=== PATIENT | male | born 1950 | race African-American/Black ===

== ENCOUNTER 2019-12-12 14:39 | Inpatient (IN) | payer MEDICARE ==
[~2019-12-12] VITALS: Ht 180.3 cm; Wt 89.1 kg
[2019-12-12] MEDS ORDERED: FAMOTIDINE 20MG/2ML VIAL IV STA (15:16)
[2019-12-12] MEDS ORDERED: SODIUM CHLORIDE 0.9% 500 ML IV ONE ×2 (15:17→17:03)
[2019-12-12] MEDS ORDERED: LORAZEPAM 2MG/ML CPJ IV ONE ×2 (15:30→17:15)
[2019-12-12 16:10] LABS: HEMATOCRIT. 45.4 % (42.0-52.0); HEMOGLOBIN. 15.3 g/dL (14.0-18.0); MEAN CORPUSCULAR HEMOGLOBIN 33.1 pg (28.0-32.0); MEAN CORPUSCULAR VOLUME 97.9 fL (80.0-94.0); MEAN PLATELET VOLUME 7.6 fl (7.4-10.4); PLATELET 109 x1000/uL (130-400); RED BLOOD CELL COUNT 4.64 mill/uL (4.7-6.1)
[2019-12-12 16:12] LABS: CHLORIDE 97 mEq/L (98-107)
[2019-12-12 16:14] LABS: PROTHROMBIN TIME 11.2 sec (9.6-11.0)
[2019-12-12 16:17] LABS: ETHANOL BLOOD 21 mg/dL
[2019-12-12 16:21] LABS: CREATINE KINASE 105 IU/L (39-308)
[2019-12-12 16:26] LABS: CREATINE KINASE MB FRACTION 5.1 ng/mL (0.5-3.6)
[2019-12-12] MEDS ORDERED: PIPERACILLIN/TAZ 3.375G PREMIX 50 ML IV ONE (17:00)
[2019-12-12 17:03] LABS: PLATELET ESTIMATE DECREASED
[2019-12-12 17:04] LABS: AMYLASE 128 IU/L (25-115)
[2019-12-12] MEDS ORDERED: CHLORDIAZEPOXIDE 25MG CAPSULE PO ONE (17:15)
[2019-12-12] MEDS ORDERED: SODIUM BICARBONATE 8.4% 1 MEQ/ML 50ML SYR IV ONE (17:15)
[2019-12-12 17:28] LABS: BG BASE EXCESS -11.5 mmol/L (-2.0-2.0); BG CARBOXYHEMOGLOBIN 1.9 % (0.5-1.5); BG DEOXYHEMOGLOBIN 8.8 % (0.0-5.0); BG HCO3 ACT 11.9 mmol/L (22.0-26.0); BG METHEMOGLOBIN 0.4 % (0.0-1.5); BG OXYHEMOGLOBIN 88.9 % (94.0-97.0); BG PCO2 22.5 mmHg (35.0-45.0); BG PH 7.343 (7.350-7.450); BG PO2 62.1 mmHg (75.0-100.0); BG SAMPLE SITE RIGHT RADIAL; BG TOTAL HEMOGLOBIN 14.8 g/dL (12.0-18.0); BG VENT MODE ROOM AIR
[2019-12-12] MEDS ORDERED: IPRATROPIUM/ALBUTEROL 0.5-3(2.5)MG/3ML NEB NEB PRN (20:30)
[2019-12-12] MEDS ORDERED: LORAZEPAM 2MG/ML CPJ IV PRN (20:30)
[2019-12-12] MEDS ORDERED: CLONIDINE 0.1MG TABLET PO PRN (20:30)
[2019-12-12] MEDS ORDERED: ACETAMINOPHEN 325MG TABLET PO PRN (20:30)
[2019-12-12] MEDS ORDERED: ONDANSETRON HCL 4MG/2ML INJ IV PRN (20:30)
[2019-12-12] MEDS ORDERED: HYDROCODONE/ACETAMINOPHEN 5/325MG TABLET PO PRN (20:30)
[2019-12-12 21:00] VITALS: BP 136/77
[2019-12-12 22:00] VITALS: BP 133/77
[2019-12-12] MEDS: MULTIVITAMINS,THER W-MINERALS TABLET PO SCH (22:09)
[2019-12-12] MEDS: SODIUM CHLORIDE 0.9% 1,000 ML IV SCH (22:09)
[2019-12-12] MEDS: THIAMINE HCL 100MG TABLET PO SCH (22:09)
[2019-12-12] MEDS: CHLORDIAZEPOXIDE 25MG CAPSULE PO SCH (22:10)
[2019-12-12 22:27] LABS: HEPATITIS B SURFACE ANTIGEN NEGATIVE
[2019-12-12 22:57] LABS: HEPATITIS A AB IGM NEGATIVE (NEGATIVE)
[2019-12-13] VITALS (12 sets, daily range): BP systolic 128–160; BP diastolic 77–93
[2019-12-13 00:52] LABS: CHLORIDE 101 mEq/L (98-107)
[2019-12-13] MEDS ORDERED: DEXTROSE 50% WATER 50ML SYRINGE IV PRN (01:00)
[2019-12-13 01:01] LABS: CREATINE KINASE 66 IU/L (39-308)
[2019-12-13] MEDS: CHLORDIAZEPOXIDE 25MG CAPSULE PO SCH ×3 (05:27→21:51)
[2019-12-13 06:36] LABS: BASOPHILS % 0.2 % (0.0-2.0); HEMATOCRIT. 37.8 % (42.0-52.0); HEMOGLOBIN. 12.7 g/dL (14.0-18.0); LYMPHOCYTES % 10.4 % (20.0-50.0); MEAN CORPUSCULAR HEMOGLOBIN 32.7 pg (28.0-32.0); MEAN CORPUSCULAR VOLUME 96.9 fL (80.0-94.0); MEAN PLATELET VOLUME 7.9 fl (7.4-10.4); MONOCYTES % 9.4 % (2.0-8.0); PLATELET 97 x1000/uL (130-400)
[2019-12-13 08:00] LABS: CHLORIDE 101 mEq/L (98-107)
[2019-12-13] MEDS: INSULIN LISPRO 100 UNITS/ML SUBCUT SCH ×4 (08:00→21:59)
[2019-12-13 08:08] LABS: CLARITY URINE CLEAR (CLEAR); COLOR URINE YELLOW (YELLOW); KETONES URINE 4+ (NEGATIVE); LEUKOCYTE ESTERASE URINE NEGATIVE (NEGATIVE); NITRITE URINE NEGATIVE (NEGATIVE); OCCULT BLOOD URINE 2+ (NEGATIVE); PROTEIN URINE 2+ (NEGATIVE); SPECIFIC GRAVITY URINE 1.022 (1.005-1.030)
[2019-12-13 08:13] LABS: *AMPHETAMINES SCREEN URINE NEGATIVE (NEGATIVE); *BARBITURATES SCREEN URINE NEGATIVE (NEGATIVE); *BENZODIAZEPINES SCREEN URINE NEGATIVE (NEGATIVE); *COCAINE SCREEN URINE NEGATIVE (NEGATIVE); METHADONE URINE SCREEN NEGATIVE (NEGATIVE); OPIATES URINE SCREEN NEGATIVE (NEGATIVE)
[2019-12-13 08:14] LABS: CANNABINOID URINE SCREEN NEGATIVE (NEGATIVE); PHENCYCLIDINE URINE SCREEN NEGATIVE (NEGATIVE)
[2019-12-13 08:23] LABS: CREATINE KINASE 65 IU/L (39-308); CREATINE KINASE MB FRACTION 2.5 ng/mL (0.5-3.6); HDL CHOLESTEROL 45 mg/dL (40-59); LDL CHOLESTEROL 106 mg/dL (5-100)
[2019-12-13] MEDS: BLOOD SUGAR DIAGNOSTIC STRIP TEST SCH ×4 (08:30→21:53)
[2019-12-13] MEDS: FOLIC ACID 1MG TABLET PO SCH (09:26)
[2019-12-13] MEDS: THIAMINE HCL 100MG TABLET PO SCH (09:26)
[2019-12-13] MEDS: MULTIVITAMINS,THER W-MINERALS TABLET PO SCH (09:26)
[2019-12-13] MEDS: SODIUM CHLORIDE 0.9% 1,000 ML IV SCH ×2 (12:19→21:54)
[2019-12-14] VITALS (12 sets, daily range): BP systolic 110–147; BP diastolic 64–92
[2019-12-14] MEDS: SODIUM CHLORIDE 0.9% 1,000 ML IV SCH ×3 (07:09→21:23)
[2019-12-14] MEDS: BLOOD SUGAR DIAGNOSTIC STRIP TEST SCH ×4 (07:09→21:21)
[2019-12-14] MEDS: CHLORDIAZEPOXIDE 25MG CAPSULE PO SCH ×3 (07:11→21:21)
[2019-12-14] MEDS: INSULIN LISPRO 100 UNITS/ML SUBCUT SCH ×4 (08:00→21:00)
[2019-12-14] MEDS: FOLIC ACID 1MG TABLET PO SCH (09:09)
[2019-12-14] MEDS: MULTIVITAMINS,THER W-MINERALS TABLET PO SCH (09:09)
[2019-12-14] MEDS: THIAMINE HCL 100MG TABLET PO SCH (09:09)
[2019-12-15] VITALS (11 sets, daily range): BP systolic 120–150; BP diastolic 60–117
[2019-12-15] MEDS: CHLORDIAZEPOXIDE 25MG CAPSULE PO SCH ×3 (05:03→20:50)
[2019-12-15] MEDS: BLOOD SUGAR DIAGNOSTIC STRIP TEST SCH ×4 (06:41→20:50)
[2019-12-15] MEDS: SODIUM CHLORIDE 0.9% 1,000 ML IV SCH ×2 (06:41→20:50)
[2019-12-15] MEDS: MULTIVITAMINS,THER W-MINERALS TABLET PO SCH (09:02)
[2019-12-15] MEDS: INSULIN LISPRO 100 UNITS/ML SUBCUT SCH ×4 (09:02→20:49)
[2019-12-15] MEDS: FOLIC ACID 1MG TABLET PO SCH (09:02)
[2019-12-15] MEDS: THIAMINE HCL 100MG TABLET PO SCH (09:02)
[2019-12-16] VITALS (11 sets, daily range): BP systolic 124–153; BP diastolic 69–88
[2019-12-16] MEDS: CHLORDIAZEPOXIDE 25MG CAPSULE PO SCH ×3 (05:34→22:16)
[2019-12-16] MEDS: SODIUM CHLORIDE 0.9% 1,000 ML IV SCH (05:35)
[2019-12-16] MEDS: BLOOD SUGAR DIAGNOSTIC STRIP TEST SCH ×4 (06:31→21:00)
[2019-12-16] MEDS: MULTIVITAMINS,THER W-MINERALS TABLET PO SCH (09:11)
[2019-12-16] MEDS: THIAMINE HCL 100MG TABLET PO SCH (09:11)
[2019-12-16] MEDS: FOLIC ACID 1MG TABLET PO SCH (09:11)
[2019-12-16] MEDS: INSULIN LISPRO 100 UNITS/ML SUBCUT SCH ×4 (09:17→22:30)
[2019-12-17] VITALS (12 sets, daily range): BP systolic 135–153; BP diastolic 65–90
[2019-12-17] MEDS: SODIUM CHLORIDE 0.9% 1,000 ML IV SCH ×3 (05:38→14:57)
[2019-12-17] MEDS: CHLORDIAZEPOXIDE 25MG CAPSULE PO SCH (05:41)
[2019-12-17 07:49] LABS: BASOPHILS % 0.2 % (0.0-2.0); EOSINOPHILS % 0.8 % (0.0-5.0); HEMATOCRIT. 36.4 % (42.0-52.0); HEMOGLOBIN. 12.2 g/dL (14.0-18.0); LYMPHOCYTES % 23.6 % (20.0-50.0); MEAN CORPUSCULAR HEMOGLOBIN 32.1 pg (28.0-32.0); MEAN CORPUSCULAR VOLUME 95.7 fL (80.0-94.0); MEAN PLATELET VOLUME 7.2 fl (7.4-10.4); MONOCYTES % 10.7 % (2.0-8.0); NEUTROPHILS % 64.7 % (40.0-76.0); PLATELET 139 x1000/uL (130-400); RED CELL DISTRIBUTION WIDTH 16.6 % (11.6-14.6)
[2019-12-17 07:56] LABS: CHLORIDE 102 mEq/L (98-107)
[2019-12-17] MEDS: THIAMINE HCL 100MG TABLET PO SCH (09:25)
[2019-12-17] MEDS: FOLIC ACID 1MG TABLET PO SCH (09:25)
[2019-12-17] MEDS: MULTIVITAMINS,THER W-MINERALS TABLET PO SCH (09:25)
[2019-12-17] MEDS: INSULIN LISPRO 100 UNITS/ML SUBCUT SCH ×4 (09:26→22:49)
[2019-12-17] MEDS: BLOOD SUGAR DIAGNOSTIC STRIP TEST SCH ×4 (09:27→21:00)
[2019-12-17] MEDS ORDERED: POTASSIUM CHLORIDE INJ 40 MEQ in DEXT 5% WATER 250 ML IV NR (10:00)
[2019-12-17] MEDS ORDERED: CHLORDIAZEPOXIDE 25MG CAPSULE PO SCH ×2 (10:45→17:00)
[2019-12-18] VITALS (12 sets, daily range): BP systolic 127–158; BP diastolic 64–90
[2019-12-18] MEDS: SODIUM CHLORIDE 0.9% 1,000 ML IV SCH ×3 (02:45→16:45)
[2019-12-18] MEDS: BLOOD SUGAR DIAGNOSTIC STRIP TEST SCH ×4 (07:30→21:00)
[2019-12-18 07:49] LABS: BASOPHILS % 0.3 % (0.0-2.0); EOSINOPHILS % 0.8 % (0.0-5.0); HEMATOCRIT. 35.8 % (42.0-52.0); LYMPHOCYTES % 20.4 % (20.0-50.0); MEAN CORPUSCULAR HEMOGLOBIN 32.1 pg (28.0-32.0); MEAN PLATELET VOLUME 7.1 fl (7.4-10.4); MONOCYTES % 9.3 % (2.0-8.0); NEUTROPHILS % 69.2 % (40.0-76.0); PLATELET 160 x1000/uL (130-400); RED BLOOD CELL COUNT 3.73 mill/uL (4.7-6.1); RED CELL DISTRIBUTION WIDTH 16.3 % (11.6-14.6)
[2019-12-18 08:18] LABS: CHLORIDE 101 mEq/L (98-107)
[2019-12-18 08:24] LABS: FOLIC ACID (FOLATE) SERUM 13.2 ng/mL (>5.38)
[2019-12-18 08:25] LABS: PHOSPHORUS 2.6 mg/dL (2.5-4.9)
[2019-12-18] MEDS: THIAMINE HCL 100MG TABLET PO SCH (08:48)
[2019-12-18] MEDS: MULTIVITAMINS,THER W-MINERALS TABLET PO SCH (08:48)
[2019-12-18] MEDS: FOLIC ACID 1MG TABLET PO SCH (08:48)
[2019-12-18] MEDS: INSULIN LISPRO 100 UNITS/ML SUBCUT SCH ×4 (08:49→22:10)
[2019-12-18] MEDS ORDERED: NA PHOS,M-B/NA PHOS,DI-BA ENEMA 118ML PR SCH (09:00)
[2019-12-18] MEDS ORDERED: CHLORDIAZEPOXIDE 25MG CAPSULE PO NR (10:45)
[2019-12-18] MEDS ORDERED: POTASSIUM CHLORIDE 20MEQ/PACKET PO NR (16:47)
[2019-12-19] VITALS (7 sets, daily range): BP systolic 130–160; BP diastolic 63–92
[2019-12-19] MEDS: SODIUM CHLORIDE 0.9% 1,000 ML IV SCH ×2 (02:32→12:45)
[2019-12-19 06:35] LABS: BASOPHILS % 0.2 % (0.0-2.0); EOSINOPHILS % 0.8 % (0.0-5.0); HEMATOCRIT. 34.5 % (42.0-52.0); LYMPHOCYTES % 27.9 % (20.0-50.0); MEAN CORPUSCULAR HEMOGLOBIN 33.1 pg (28.0-32.0); MEAN CORPUSCULAR VOLUME 95.5 fL (80.0-94.0); MEAN PLATELET VOLUME 7.2 fl (7.4-10.4); MONOCYTES % 11.3 % (2.0-8.0); NEUTROPHILS % 59.8 % (40.0-76.0); PLATELET 154 x1000/uL (130-400); RED BLOOD CELL COUNT 3.62 mill/uL (4.7-6.1); RED CELL DISTRIBUTION WIDTH 16.3 % (11.6-14.6)
[2019-12-19 06:59] LABS: CHLORIDE 103 mEq/L (98-107)
[2019-12-19 07:06] LABS: PHOSPHORUS 3.7 mg/dL (2.5-4.9)
[2019-12-19] MEDS: BLOOD SUGAR DIAGNOSTIC STRIP TEST SCH ×4 (07:30→21:56)
[2019-12-19] MEDS: FOLIC ACID 1MG TABLET PO SCH (09:17)
[2019-12-19] MEDS: MULTIVITAMINS,THER W-MINERALS TABLET PO SCH (09:17)
[2019-12-19] MEDS: THIAMINE HCL 100MG TABLET PO SCH ×2 (09:17→12:40)
[2019-12-19] MEDS: INSULIN LISPRO 100 UNITS/ML SUBCUT SCH ×4 (09:43→21:56)
[2019-12-19] MEDS ORDERED: POTASSIUM CHLORIDE 20MEQ TABLET SR PO NR (10:15)
[2019-12-19] MEDS ORDERED: MAGNESIUM OXIDE 400MG TABLET PO NR (10:15)
[2019-12-19] MEDS: CARVEDILOL 3.125 MG TABLET PO SCH ×2 (11:01→21:56)
[2019-12-19] MEDS ORDERED: THIAMINE HCL 200 MG in SODIUM CHLORIDE 0.9% 98 ML IV ONE (12:00)
[2019-12-19] MEDS ORDERED: THIA100T72 PO (12:33)
[2019-12-19] MEDS ORDERED: FOLI-43 PO (12:33)
[2019-12-19] MEDS ORDERED: MULT-230 MT (12:33)
[2019-12-19] MEDS ORDERED: ATOR10TA69 MT (12:33)
[2019-12-19] MEDS ORDERED: COR3 PO (12:33)
[2019-12-19] MEDS: ASPIRIN 81MG EC TABLET PO SCH (17:02)
[2019-12-20] VITALS: BP 146/76
[2019-12-20 04:00] VITALS: BP 104/76
[2019-12-20] MEDS: BLOOD SUGAR DIAGNOSTIC STRIP TEST SCH ×4 (07:44→21:50)
[2019-12-20 07:47] LABS: BASOPHILS % 0.2 % (0.0-2.0); EOSINOPHILS % 0.8 % (0.0-5.0); HEMATOCRIT. 34.5 % (42.0-52.0); HEMOGLOBIN. 11.9 g/dL (14.0-18.0); LYMPHOCYTES % 23.8 % (20.0-50.0); MEAN CORPUSCULAR HEMOGLOBIN 33.2 pg (28.0-32.0); MEAN CORPUSCULAR VOLUME 96.2 fL (80.0-94.0); MEAN PLATELET VOLUME 7.3 fl (7.4-10.4); MONOCYTES % 14.2 % (2.0-8.0); PLATELET 176 x1000/uL (130-400); RED BLOOD CELL COUNT 3.59 mill/uL (4.7-6.1); RED CELL DISTRIBUTION WIDTH 16.4 % (11.6-14.6)
[2019-12-20 08:00] VITALS: BP 134/43
[2019-12-20 08:01] LABS: CHLORIDE 101 mEq/L (98-107)
[2019-12-20] MEDS: FOLIC ACID 1MG TABLET PO SCH (08:36)
[2019-12-20] MEDS: ASPIRIN 81MG EC TABLET PO SCH (08:36)
[2019-12-20] MEDS: MULTIVITAMINS,THER W-MINERALS TABLET PO SCH (08:36)
[2019-12-20] MEDS: CARVEDILOL 3.125 MG TABLET PO SCH (08:37)
[2019-12-20] MEDS: INSULIN LISPRO 100 UNITS/ML SUBCUT SCH ×4 (08:39→21:55)
[2019-12-20 12:00] VITALS: BP 135/75
[2019-12-20] MEDS ORDERED: POTASSIUM CHLORIDE 20MEQ TABLET SR PO NR (12:00)
[2019-12-20 16:00] VITALS: BP 137/87
[2019-12-20 20:00] VITALS: BP 142/77
[2019-12-20] MEDS: CARVEDILOL 6.25 MG TABLET PO SCH (21:49)
[2019-12-21] VITALS: BP 129/74
[2019-12-21 08:00] VITALS: BP 152/127
[2019-12-21] MEDS: BLOOD SUGAR DIAGNOSTIC STRIP TEST SCH ×2 (08:24→13:00)
[2019-12-21] MEDS: FOLIC ACID 1MG TABLET PO SCH (08:27)
[2019-12-21] MEDS: THIAMINE HCL 100MG TABLET PO SCH (08:27)
[2019-12-21] MEDS: MULTIVITAMINS,THER W-MINERALS TABLET PO SCH (08:27)
[2019-12-21] MEDS: ASPIRIN 81MG EC TABLET PO SCH (08:27)
[2019-12-21] MEDS: CARVEDILOL 6.25 MG TABLET PO SCH (08:27)
[2019-12-21] MEDS: INSULIN LISPRO 100 UNITS/ML SUBCUT SCH ×2 (08:30→13:04)
[2019-12-21 12:00] VITALS: BP 117/66
[2019-12-21] MEDS ORDERED: MAGNESIUM OXIDE 400MG TABLET PO NR (12:30)
[2019-12-21 12:32] VITALS: BP 117/66
[2019-12-21] MEDS ORDERED: POTASSIUM CHLORIDE 20MEQ TABLET SR PO NR (13:00)
[2019-12-21] MEDS ORDERED: CARVEDILOL 12.5MG TABLET PO SCH (21:00)
== END 2019-12-21 14:25 | disposition home or self-care (01) | DRG 438 ==
LOC: ER 14:39 → 5EST 17:47 → EDBEDREQSVC 17:54 → EDBEDREQ 17:54 → ENRESERV 19:43
PROVIDERS: ADMIT Internal Medicine; ATTEND Internal Medicine
DX: K85.20 Alcohol induced acute pancreatitis without necrosis or infection (principal); G93.41 Metabolic encephalopathy; I42.0 Dilated cardiomyopathy; K80.10 Calculus of gallbladder with chronic cholecystitis without obstruction; I50.20 Unspecified systolic (congestive) heart failure; K86.0 Alcohol-induced chronic pancreatitis; E78.1 Pure hyperglyceridemia; K57.90 Diverticulosis of intestine, part unspecified, without perforation or abscess without bleeding; K70.0 Alcoholic fatty liver; D53.9 Nutritional anemia, unspecified; E11.65 Type 2 diabetes mellitus with hyperglycemia; E78.5 Hyperlipidemia, unspecified; E83.42 Hypomagnesemia; E87.6 Hypokalemia; F17.290 Nicotine dependence, other tobacco product, uncomplicated; I11.0 Hypertensive heart disease with heart failure; K59.00 Constipation, unspecified; F10.20 Alcohol dependence, uncomplicated; R00.0 Tachycardia, unspecified; D50.9 Iron deficiency anemia, unspecified; G51.0 Bell's palsy; Y90.1 Blood alcohol level of 20-39 mg/100 ml; Z79.84 Long term (current) use of oral hypoglycemic drugs; Z86.73 Personal history of transient ischemic attack (TIA), and cerebral infarction without residual deficits; Z79.899 Other long term (current) drug therapy; Z59.0 Homelessness
CPT/HCPCS: 36415; 36600; 70551; 71045; 74176; 76705; 80048; 80053; 80061; 80076; 80305; 80320; 81003; 82140; 82150; 82375; 82550; 82553; 82607; 82746; 82805; 82962; 83036; 83605; 83615; 83735; 83880; 84100; 84443; 84484; 85025; 86705; 86709; 86803; 87340; 93005; 93306; 93880; 97110; 97116; 97162; 97165; 97530; 97535; 99291; J1815; J2060; J2405; J2543; J3480; J3490; J7040; J7060; G0480